=== PATIENT | male | born 1985 | race Caucasian/White ===

== ENCOUNTER 2025-07-06 15:19 | Emergency (ER) | payer SELFPAY | END 2025-07-06 15:50 | disposition home or self-care (01) | LOC: MADERS 15:19 | DX: S60.352A Superficial foreign body of left thumb, initial encounter (principal); I10 Essential (primary) hypertension; F17.210 Nicotine dependence, cigarettes, uncomplicated; F17.290 Nicotine dependence, other tobacco product, uncomplicated; Z23 Encounter for immunization; Z79.899 Other long term (current) drug therapy; W45.0XXA Nail entering through skin, initial encounter | CPT/HCPCS: 64450; 90471; 90715 ==